=== PATIENT | female | born 1990 | race Caucasian/White ===

== ENCOUNTER → 2023-11-17 12:59 | Outpatient (REF) | payer OTHER, SELFPAY | LOC: RAD 12:59 | PROVIDERS: ATTENDING PHYSICIAN Obstetrics & Gynecology; FAMILY PHYSICIAN Family Medicine | DX: Z34.90 Encounter for supervision of normal pregnancy, unspecified, unspecified trimester (principal); R39.15 Urgency of urination | CPT/HCPCS: 76770 ==

== ENCOUNTER → 2023-11-22 11:16 | Outpatient (REF) | payer OTHER, SELFPAY | LOC: PNTC 11:16 | PROVIDERS: ATTENDING PHYSICIAN Obstetrics & Gynecology | DX: O09.529 Supervision of elderly multigravida, unspecified trimester (principal) | CPT/HCPCS: 76816 ==

== ENCOUNTER 2023-12-02 02:43 | Observation (INO) | payer OTHER, SELFPAY ==
[2023-12-02 03:02] VITALS: BP 115/76; BMI 31.7
[2023-12-02 03:25] LABS: % Basophils 0.3 % (0-2); % Eosinophils 1.1 % (0-6); % Immature Granulocytes 1.8 % (0-0.5); % Lymphocytes 17.2 % (20.5-51.1); % Monocytes 7.7 % (1.7-9.3); % Neutrophils 71.9 % (42.2-75.2); Absolute Eosinophils 0.1 10^3/uL (0-0.7); Absolute Immature Granulocytes 0.2 10^3/uL (0-0.05); Absolute Lymphocytes 2.1 10^3/uL (1.2-3.4); Absolute Monocytes 0.9 10^3/uL (0.1-0.6); Absolute Neutrophils 8.8 10^3/uL (1.4-6.5); Hematocrit 31.8 % (37.0-47.0); Mean Corp Hgb Conc. 34.6 g/dL (33.0-37.0); Mean Corpuscular Hgb 28.6 pg (27.0-31.0); Mean Corpuscular Volume 82.8 fL (81.0-99.0); Nucleated Red Blood Cells % 0 %; Platelet Count 276 10^3/uL (130-400); Red Blood Cell Count 3.84 10^6/uL (4.20-5.40); Red Cell Dist. Width 13.8 % (11.5-14.5); White Blood Cell Count 12.2 10^3/uL (4.8-10.8)
[2023-12-02] MEDS: TYLENOL 1000 MG PO (03:33)
[2023-12-02 03:38] LABS: ALT (SGPT) 22 U/L (0-35); AST (SGOT) 23 U/L (14-36); Albumin 3.5 g/dl (3.5-5.0); Alkaline Phosphatase 61 U/L (38-126); Blood Urea Nitrogen 10 mg/dl (7-17); Calcium 9.3 mg/dl (8.4-10.2); Carbon Dioxide 20 mmol/L (22-30); Chloride 108 mmol/L (98-107); Estimated Creatinine Clearance > 125 ml/min; Glucose 92 mg/dl (70-99); Potassium 4.2 mmol/L (3.5-5.1); Sodium 133 mmol/L (135-145); Total Bilirubin 0.3 mg/dl (0.2-1.3); Total Protein 6.5 g/dl (6.3-8.2); eGFR > 60.00
[2023-12-02 03:47] LABS: Urine Albumin Negative (Neg - Trace); Urine Bilirubin Negative (Negative); Urine Character Clear (Clear); Urine Color Yellow; Urine Glucose Negative (Negative); Urine Ketone Negative (Negative); Urine Leukocyte Negative (Negative); Urine Nitrite Negative (Negative); Urine Occult Blood Negative (Negative); Urine Urobilinogen Negative (Neg - 1+)
== END 2023-12-02 04:22 | disposition home or self-care (01) ==
LOC: LDRP 02:43
PROVIDERS: ADMITTING PHYSICIAN Obstetrics & Gynecology
DX: R10.31 Right lower quadrant pain (principal); O99.013 Anemia complicating pregnancy, third trimester; D64.9 Anemia, unspecified; Z3A.30 30 weeks gestation of pregnancy; Z28.310 Unvaccinated for COVID-19; Z87.442 Personal history of urinary calculi
CPT/HCPCS: 80053; 81003; 85025; 87086; G0378

== ENCOUNTER 2023-12-11 10:28 | Observation (INO) | payer OTHER, SELFPAY ==
[2023-12-11 11:08] VITALS: BP 93/59; BMI 32.4
== END 2023-12-11 15:15 | disposition home or self-care (01) ==
LOC: PNTC-IN 10:28
PROVIDERS: ADMITTING PHYSICIAN Obstetrics & Gynecology
DX: O71.9 Obstetric trauma, unspecified (principal); Z87.442 Personal history of urinary calculi; W01.0XXA Fall on same level from slipping, tripping and stumbling without subsequent striking against object, initial encounter; Y93.K1 Activity, walking an animal; Y92.9 Unspecified place or not applicable; O99.013 Anemia complicating pregnancy, third trimester; D64.9 Anemia, unspecified; Z3A.31 31 weeks gestation of pregnancy
CPT/HCPCS: 76815; 85460; G0378

== ENCOUNTER → 2023-12-27 09:05 | Outpatient (REF) | payer OTHER, SELFPAY | LOC: PNTC 09:05 | PROVIDERS: ATTENDING PHYSICIAN Obstetrics & Gynecology | DX: O09.529 Supervision of elderly multigravida, unspecified trimester (principal) | CPT/HCPCS: 76816 ==

== ENCOUNTER 2024-01-05 17:20 | Observation (INO) | payer OTHER, SELFPAY ==
[2024-01-05 17:34] VITALS: BP 108/57; BMI 33.5
[2024-01-05] MEDS: LR 1000 IV (17:50)
[2024-01-05 18:08] LABS: Hematocrit 35.4 % (37.0-47.0); Hemoglobin 12.1 g/dL (12.0-16.0); Mean Corp Hgb Conc. 34.2 g/dL (33.0-37.0); Mean Corpuscular Hgb 29.2 pg (27.0-31.0); Mean Corpuscular Volume 85.3 fL (81.0-99.0); Mean Platelet Volume 10.4 fL (7.4-10.4); Platelet Count 245 10^3/uL (130-400); Red Blood Cell Count 4.15 10^6/uL (4.20-5.40); Red Cell Dist. Width 14.1 % (11.5-14.5); White Blood Cell Count 13.3 10^3/uL (4.8-10.8)
[2024-01-05 18:32] LABS: ALT (SGPT) 21 U/L (0-35); AST (SGOT) 23 U/L (14-36); Albumin 3.7 g/dl (3.5-5.0); Alkaline Phosphatase 76 U/L (38-126); Blood Urea Nitrogen 9 mg/dl (7-17); Calcium 10.1 mg/dl (8.4-10.2); Carbon Dioxide 19 mmol/L (22-30); Chloride 102 mmol/L (98-107); Estimated Creatinine Clearance > 125 ml/min; Glucose 95 mg/dl (70-99); Sodium 129 mmol/L (135-145); Total Bilirubin 0.4 mg/dl (0.2-1.3); Total Protein 6.8 g/dl (6.3-8.2); eGFR > 60.00
[2024-01-05 18:37] LABS: Urine Albumin Negative (Neg - Trace); Urine Bilirubin Negative (Negative); Urine Character Clear (Clear); Urine Color Yellow; Urine Glucose Negative (Negative); Urine Ketone Negative (Negative); Urine Leukocyte Trace (Negative); Urine Nitrite Negative (Negative); Urine Occult Blood Negative (Negative); Urine Urobilinogen Negative (Neg - 1+)
[2024-01-05 18:42] LABS: Urine Bacteria Moderate (Negative); Urine Red Blood Cell 0-2 /HPF (0-2); Urine Squamous Cell 0-2 /LPF (Few)
== END 2024-01-05 20:02 | disposition home or self-care (01) ==
LOC: LDRP 17:20
PROVIDERS: ADMITTING PHYSICIAN Obstetrics & Gynecology
DX: R11.0 Nausea (principal); H53.8 Other visual disturbances; R42 Dizziness and giddiness; R51.9 Headache, unspecified; O99.013 Anemia complicating pregnancy, third trimester; D64.9 Anemia, unspecified; Z3A.35 35 weeks gestation of pregnancy; Z87.442 Personal history of urinary calculi
CPT/HCPCS: 80053; 81003; 81015; 85027; 86850; 86900; 86901; G0378

== ENCOUNTER 2024-01-28 03:15 | Inpatient (IN) | payer OTHER, SELFPAY ==
[2024-01-28 03:24] VITALS: BMI 34.0
[2024-01-28 03:38] VITALS: BP 112/86
[2024-01-28 04:50] LABS: % Basophils 0.4 % (0-2); % Eosinophils 1.2 % (0-6); % Immature Granulocytes 1.3 % (0-0.5); % Lymphocytes 17.8 % (20.5-51.1); % Monocytes 7.9 % (1.7-9.3); % Neutrophils 71.4 % (42.2-75.2); Absolute Eosinophils 0.1 10^3/uL (0-0.7); Absolute Immature Granulocytes 0.2 10^3/uL (0-0.05); Absolute Monocytes 0.9 10^3/uL (0.1-0.6); Absolute Neutrophils 8.1 10^3/uL (1.4-6.5); Hematocrit 36.4 % (37.0-47.0); Hemoglobin 12.6 g/dL (12.0-16.0); Mean Corp Hgb Conc. 34.6 g/dL (33.0-37.0); Mean Corpuscular Hgb 28.4 pg (27.0-31.0); Nucleated Red Blood Cells % 0 %; Platelet Count 263 10^3/uL (130-400); Red Blood Cell Count 4.44 10^6/uL (4.20-5.40); Red Cell Dist. Width 14.3 % (11.5-14.5); White Blood Cell Count 11.4 10^3/uL (4.8-10.8)
[2024-01-28] MEDS: SUBLIMAZE 100 MCG EPIDURAL (08:43)
[2024-01-28] MEDS: FENTANYL/BUPIVACAINE 100 EPIDURAL ×2 (08:43→17:04)
[2024-01-28] MEDS: LR 1000 IV ×2 (09:16→11:56)
[2024-01-28] MEDS: PITOCIN 30 UNITS/NSS 500 ML IV (10:09)
[2024-01-28] MEDS: ZOFRAN 4 MG IV (13:18)
[2024-01-28] MEDS: TUMS EX (EXTRA STRENGTH) CHEWABLE 2 TABLET PO (18:34)
[2024-01-29] MEDS: TYLENOL 650 MG PO ×4 (03:01→21:59)
[2024-01-29] MEDS: MOTRIN 600 MG PO ×4 (03:02→21:59)
[2024-01-29 04:37] LABS: Hematocrit 33.2 % (37.0-47.0); Hemoglobin 11.4 g/dL (12.0-16.0)
[2024-01-29] MEDS: PRENATAL PLUS 1 TABLET PO (07:38)
[2024-01-29] MEDS: SENOKOT-S 1 TABLET PO (07:38)
[2024-01-30] MEDS: MOTRIN 600 MG PO (08:11)
[2024-01-30] MEDS: PRENATAL PLUS 1 TABLET PO (08:11)
[2024-01-30] MEDS: SENOKOT-S 1 TABLET PO (08:11)
[2024-01-30] MEDS: TYLENOL 650 MG PO (08:11)
[2024-01-30 16:06] LABS: Syphilis/T. pallidum Ab Reflex Negative (Negative)
== END 2024-01-30 11:21 | disposition home or self-care (01) | DRG 807 ==
LOC: LDRP 03:15
PROVIDERS: ADMITTING PHYSICIAN Obstetrics & Gynecology
PROC: 0UQMXZZ Repair Vulva, External Approach (ICD-10-PCS; 2024-01-28)
PROC: 0KQM0ZZ Repair Perineum Muscle, Open Approach (ICD-10-PCS; 2024-01-28)
PROC: 10E0XZZ Delivery of Products of Conception, External Approach (ICD-10-PCS; 2024-01-28)
DX: O66.0 Obstructed labor due to shoulder dystocia (principal); Z37.0 Single live birth; O70.1 Second degree perineal laceration during delivery
CPT/HCPCS: 36415; 85014; 85018; 85025; 86780; 86850; 86900; 86901

== ENCOUNTER → 2025-04-23 15:28 | Outpatient (REF) | payer OTHER, SELFPAY | LOC: HWRAD 15:28 | PROVIDERS: ATTENDING PHYSICIAN Nurse Practitioner Primary Care | DX: E06.3 Autoimmune thyroiditis (principal) | CPT/HCPCS: 76536 ==

== ENCOUNTER → 2025-04-28 09:19 | Outpatient (REF) | payer SELFPAY | LOC: HWRAD 09:19 | PROVIDERS: ATTENDING PHYSICIAN Nurse Practitioner Primary Care | DX: E78.00 Pure hypercholesterolemia, unspecified (principal); Z82.49 Family history of ischemic heart disease and other diseases of the circulatory system | CPT/HCPCS: 75571 ==

== ENCOUNTER 2025-05-14 09:28 | Outpatient (RCR) | payer OTHER, SELFPAY ==
[2025-05-08] MEDS: VENOFER 110 MG IV (13:19)
[2025-05-08 13:23] VITALS: BP 98/61
[2025-05-08 14:26] VITALS: BP 96/71
[2025-05-14] MEDS: VENOFER 110 MG IV (09:55)
[2025-05-14 09:57] VITALS: BP 101/63
== END 2025-05-15 10:19 | disposition home or self-care (01) ==
LOC: OID 09:28
PROVIDERS: ATTENDING PHYSICIAN Nurse Practitioner Primary Care
DX: D50.9 Iron deficiency anemia, unspecified (principal); E61.1 Iron deficiency; R53.83 Other fatigue
CPT/HCPCS: 96365; J1756

== ENCOUNTER 2025-05-30 13:04 | Outpatient (RCR) | payer OTHER, SELFPAY ==
[2025-05-21 09:25] VITALS: BP 107/65
[2025-05-21] MEDS: VENOFER 110 MG IV (09:39)
[2025-05-21 10:42] VITALS: BP 102/66
[2025-05-23 09:30] VITALS: BP 96/59
[2025-05-23] MEDS: VENOFER 110 MG IV (09:48)
[2025-05-23 11:16] VITALS: BP 109/65
[2025-05-30 13:15] VITALS: BP 102/53
[2025-05-30] MEDS: VENOFER 110 MG IV (13:27)
[2025-05-30 15:00] VITALS: BP 94/52
== END 2025-06-17 23:59 | disposition home or self-care (01) ==
LOC: OID 13:04
PROVIDERS: ATTENDING PHYSICIAN Nurse Practitioner Primary Care
DX: D50.9 Iron deficiency anemia, unspecified (principal); E61.1 Iron deficiency; R53.83 Other fatigue
CPT/HCPCS: 96365; J1756

== ENCOUNTER 2025-08-20 11:31 | Emergency (ER) | payer OTHER, SELFPAY ==
[2025-08-20 11:39] VITALS: BP 119/80
--- NOTE | 2025-08-20 13:56 | ED.GENMED ---
History of Present Illness
General
Chief Complaint: DVT/Possible Blood Clot
Source: patient
Exam Limitations: none
Time Seen by Provider: 08/20/25 12:56
Nursing documentation reviewed up to this point in time: agreed with
History of Present Illness
History of Present Illness:
35-year-old female past with history of hypothyroidism presenting to the emergency department today with concerns of right leg swelling after a flight 3 days ago. Flight was from [place] roughly 3 hours. Denies any chest pain shortness of breath
no history of blood clots not on estrogen
Review of Systems
Review of Systems
Allergies reviewed?: Yes
All Other Systems: ROS reviewed and negative except as documented in HPI and ROS
Phy Exam
Physical Exam
Physical Exam:
GENERAL: Alert , in no apparent distress
EYE: pupils equal and reactive
NECK: Supple, no significant adenopathy.
ENT: o/p clr, mmm.
CARDIAC: Regular rate and rhythm .
LUNGS: Clear breath sounds bilaterally, no acute respiratory distress, no wheezes/rales/rhonchi
ABDOMEN: Soft, without focal tenderness, no r/g, no cvat
NEUROLOGICAL: Alert and oriented, no focal neuro deficits
SKIN: Warm and dry, skin intact.
MUSCULOSKELETAL: Vague swelling to the right leg compared to the left no pitting edema no redness or warmth good range of motion of the knee, well perfused.
PSYCH: Normal and appropriate interaction.
Course
Orders/Labs/Results
Orders:
Orders
08/20/25 12:23
Periph Venous Lwr Ext Rt US [US Periph Venous LOWER Ext RT] Urgent
Comment:
Reason For Exam: pain and swelling RLE
Vital Signs
Initial and Last Documented VS:
Initial Vital Signs
Temp Pulse Resp BP Pulse Ox
98.2 F 72 18 119/80 98
08/20/25 11:39 08/20/25 11:39 08/20/25 11:39 08/20/25 11:39 08/20/25 11:39
Last Documented Vital Signs
Temp Pulse Resp BP Pulse Ox
98.2 F 72 18 119/80 98
08/20/25 11:39 08/20/25 11:39 08/20/25 11:39 08/20/25 11:39 08/20/25 11:39
MDM/Problems Addressed
MDM/Problems Addressed:
35-year-old female presenting to the emergency department today with concerns of right leg swelling and discomfort over the past few days after a flight from [place]. No chest pain or shortness of breath no history of blood clots. Here ultrasound
was performed that did not show signs of DVT. No evidence of infection. With potential mild sprain of the knee advised for conservative treatment and close outpatient follow-up. Return precautions given.
*Pulse Oximetry
SaO2: 98
Oxygen Mode of Delivery: Room air
Patient hypoxic: no (98)
*Critical Care Note
Total Time (30-74mins, 75-104mins- exclusive of procedures): Not Applicable
ED Attending Note
-
Portions of this chart may have been created with voice recognition software.� Occasional wrong word or��sound alike� substitutions may have occurred due to the inherent limitations of voice recognition software.
Discharge Plan
Departure
Patient Disposition: Home (Routine Discharge)
Date of Disposition: 08/20/25
Time of Disposition: 13:58
Patient with high blood pressure during this ER visit?: No
Condition: Good
Covid-19: Not Applicable
Discharge Problem:
Leg pain
Instructions: Knee Sprain ED
Prescriptions:
No Action
No Current Medications
0
Activity Restrictions/Additional Instructions:
You came to the emergency department today with concerns of leg swelling discomfort. Your ultrasound was normal. Please follow closely as an outpatient. In the meantime please rest ice compress and elevate. Return for any worsening, new or
concerning symptoms.
Interventions
Interventions:
*Risk Screen - Suicide Last Done: 08/20/25 12:25
Discharge Date and Time
Print Language: CITIZEN OF [place]
== END 2025-08-20 14:20 | disposition home or self-care (01) ==
LOC: EMR 11:31
PROVIDERS: EMERGENCY PHYSICIAN Student in an Organized Health Care Education/Training Program; FAMILY PHYSICIAN Nurse Practitioner Primary Care
DX: M79.604 Pain in right leg (principal); E03.9 Hypothyroidism, unspecified
CPT/HCPCS: 99284; 93971